=== PATIENT | male | born 1960 | race Caucasian/White ===

== ENCOUNTER 2022-08-18 07:10 | Observation (INO) ==
--- NOTE | 2022-07-16 11:01 | PAT Medication Instructions ---
Medication Instructions Date of Service July 16, 2022 Home Medications meloxicam 15 mg tablet 15 mg PO QAM metoprolol succinate 50 mg tablet,extended release 24 hr 50 mg PO QAM tamsulosin 0.4 mg capsule 0.4 mg PO QAM valsartan 80 mg tablet 80 mg PO QAM ASK your surgeon for instructions meloxicam 15 mg tablet 15 mg PO QAM DO NOT take the morning of surgery valsartan 80 mg tablet 80 mg PO QAM Take morning of surgery With a small sip of water, OTHERWISE NOTHING TO EAT OR DRINK AFTER MIDNIGHT: metoprolol succinate 50 mg tablet,extended release 24 hr 50 mg PO QAM tamsulosin 0.4 mg capsule 0.4 mg PO QAM Other Notes If you have any questions please call us at [phone] or [phone] or [phone] or [phone]
--- NOTE | 2022-07-20 08:22 | History & Physical Report ---
Date of Service July 20, 2022 date of surgery: 08/18/22 Procedure: Left Total Knee Arthroplasty Surgeon: Abel Cervantes Assessment & Plan (1) Arthritis of knee, left: Plan: Patient presents with continued pain in his left knee, he states the cortisone injection only provided about 2 weeks worth of relief. He has tried oral anti- inflammatories as well as Tylenol, cortisone injection as well as viscosupplementation. He has also had prior left knee arthroscopy in 2019. At this point time he has failed conservative measures and like to proceed with surgical intervention. Would plan for a patient-matched left total knee arthroplasty at [facility], patient does have a hip replacement on the left side which would require a patient-matched knee replacement. He also states his is currently undergoing chemotherapy for breast cancer and would like to be overnight stay at the hospital, will plan for discharge home with home health physical therapy. Will place on aspirin 81 mg twice a day for 1 month postop. He otherwise has no other questions or concerns The risks and benefits have been discussed including, but not limited to, risk of infection, nerve injury, stiffness, loss of motion, failure to improve, etc. Reasonable outcomes and options of treatment were discussed. An explanation of appropriate alternatives to the procedure that may be advantageous were discussed and their risks and benefits, as well as the risks and benefits of not proceeding with treatment. I offered to answer any additional inquiries concerning the treatment involved. All the patient's questions were answered. The patient is agreeable, understanding of the treatment plan and alternatives, and wishes to proceed with the treatment plan. History of Present Illness Chief Complaint: left knee pain Primary Care Provider: ANTONELLA PCP Santos is a pleasant 61-year-old male who presented for preop evaluation prior to his left total knee replacement. He states he been having pain in that knee for many years now which is gradually worsened and is now affecting his daily activities. He is undergone previous left knee arthroscopy as well as cortisone injections as well as viscosupplementation without any significant relief. He is tried oral anti-inflammatories and Tylenol. He has complaints of pain decreased range of motion and stiffness. At this point time is failed conservative measures and would like to proceed with a left total knee replacement Allergies Allergy/AdvReac Type Severity Reaction Status Date / Time Penicillins Allergy Rash Verified 07/15/22 12:21 Home Medications Medication Instructions Recorded Confirmed Type meloxicam 15 mg tablet 15 mg PO QAM 07/15/22 07/15/22 History metoprolol succinate 50 mg 50 mg PO QAM 07/15/22 07/15/22 History tablet,extended release 24 hr tamsulosin 0.4 mg capsule 0.4 mg PO QAM 07/15/22 07/15/22 History valsartan 80 mg tablet 80 mg PO QAM 07/15/22 07/15/22 History Past Med/Surg History Medical History Anxiety BPH (benign prostatic hyperplasia) HTN (hypertension) Osteoarthritis Surgical History History of arthroscopy of left shoulder History of arthroscopy of right shoulder History of colonoscopy History of left hip replacement History of open reduction and internal fixation (ORIF) procedure LLE, RUE History of revision of total hip arthroplasty left Family History Other No family history of adverse response to anesthesia Social History Smoking Status: Former smoker Second Hand Exposure: No; Do You Dip or Chew Tobacco: No (quit 25 years ago); Hx Alcohol Use: Yes Hx Substance Use: No Preferred Language: Croatian Communication Ability: Effective Residential Therapist Required: No Beliefs That Will Affect Care: None Current Living Situation: Spouse Feels Safe at Home: Yes Assistive Devices: Glasses Review of Systems Review of Systems: All systems reviewed & are unremarkable except as noted in HPI & below Constitutional: no fever, no chills and no sweats Respiratory: no cough and no dyspnea Cardiovascular: no chest pain, no dyspnea and no orthopnea Gastrointestinal: no abdominal pain, no nausea and no vomiting Musculoskeletal: as per Subjective / HPI Physical Exam Physical Exam: HT: 6ft 1in WT: 117.9kg Constitutional: WD/WN, vitals as above no acute distress Respiratory: normal respiratory effort, lungs clear to auscultation no respiratory distress, no labored breathing and does not use accessory muscles Cardiovascular: RRR, no murmur, no edema Gastrointestinal (Abdomen): normal bowel sounds, soft, nontender, no hepatosplenomegaly Musculoskeletal: Knee: + knee abnormal to inspection (LEFT KNEE: ), + effusion (+1 effusion), + surgical incision (well healed portals), + limited ROM of knee (ROM 0/3/110), + knee ROM with crepitation, + joint line tenderness (medial joint line) and + Jacey's sign positive; no deformity, no skin erythema, no ecchymosis, no valgus laxity, no varus laxity, anterior drawer test negative, Vernell's sign negative and pivot shift test negative Results & Data Results & Data Diagnostic Findings Left Knee X-ray: left knee series confirm advanced degenerative changes to the left knee, greatest medial compartments and patellofemoral joint, showing joint space narrowing, osteophyte formation and subchondral sclerosis. no acute bony pathology noted.
--- NOTE | 2022-07-20 10:23 | Anesthesiology Consultation ---
Date of Service July 20, 2022 Assessment & Plan (1) Encounter for pre-operative examination: - PCP pre-op evaluation scheduled 07/28/22 per pt: Charles Rubio. - anesthesia concerns: pt reports spinal block for COREY was not effective as had significant post-op pain. Denies awareness with that procedure. He does report awareness with LLE ORIF. - anesthesia reaction: (patient sometimes wakes confused, has "swung" in the past related to past experiences). - Outpatient joint assessment: Patient is currently scheduled for inpatient pathway. If re-evaluated pending system levels during current pandemic/surgeon requests outpatient pathway, patient is acceptable candidate for outpatient joint program from anesthesia standpoint pending surgeon's office assessment of pt motivation/support/completion of same day joint program preop requirements. Chart Review Chart Review: Pending: Refer to Additional Notes / Consult section and Patient seen in Pre Admission Testing Teaching & Discussion Pre-Anesthesia Teaching/Discussion Notes: Instructed NPO after midnight before surgery, except medications with 15 cc of water. Medication instructions provided according to the PAT guidelines. History Surgery Operation Date: 08/18/22 11:45 Proposed Procedures p Left Total Knee Arthroplasty - Abel Cervantes DO Height/Weight Height: 6 ft 1 in Weight: 116.1 kg Allergies Allergy/AdvReac Type Severity Reaction Status Date / Time Penicillins Allergy Rash Verified 07/15/22 12:21 Medications Home Medications Medication Instructions Recorded Confirmed Last Taken meloxicam 15 mg tablet 15 mg PO QAM 07/15/22 07/15/22 Unknown metoprolol succinate 50 mg 50 mg PO QAM 07/15/22 07/15/22 Unknown tablet,extended release 24 hr tamsulosin 0.4 mg capsule 0.4 mg PO QAM 07/15/22 07/15/22 Unknown valsartan 80 mg tablet 80 mg PO QAM 07/15/22 07/15/22 Unknown alprazolam 0.5 mg tablet 0.5 mg PO HS PRN Insomnia 07/20/22 07/20/22 Unknown Additional Notes: Pt denies additional medications other than alprazolam 0.5 mg HS PRN. This was added to EMR and written on provided medication instructions that it can be taken the evening prior to surgery if needed. He verbalized full understanding and denied additional questions or concerns. Past Medical History Medical History (Updated 07/20/22 @ 10:24 by Brionna Flores PA-C) Anxiety BPH (benign prostatic hyperplasia) HTN (hypertension) controlled, stable per pt Patient denies h/o stroke, seizures, heart attack, heart failure, DM, blood clots or blood transfusions. Exercise / Class Metabolic Activity II 4-5 Yardwork/Stairs/Walk up hill (denies chest discomfort or shortness of breath with 1 FOS) Past Family History Family History Other No family history of adverse response to anesthesia Past Surgical History Surgical History History of arthroscopy of left shoulder History of arthroscopy of right shoulder History of colonoscopy History of left hip replacement History of open reduction and internal fixation (ORIF) procedure LLE, RUE History of revision of total hip arthroplasty left Past Anesthesia History No Family Hx of Anesthesia Complications and Other (patient sometimes wakes confused, has "swung" in the past related to past experiences) History of PONV No Hx of PONV and No Hx of Motion Sickness Social History Smoking Status: Former smoker Do You Dip or Chew Tobacco: No (quit 25 years ago) Smoking End Date: 25 years ago Hx Alcohol Use: Yes alcohol intake frequency: a few times a month Hx Substance Use: No substance use type: does not use Review of Systems Patient denies chest pain, shortness of breath, dyspnea on exertion, snoring, witnessed apneas, reflux, fever, chills, cough, wheezing, or palpitations. Physical Exam Vital Signs Vitals BP 153/91 P 55 TEMP 98.5 SP02 95% on RA RESP 18 Physical Full cervical extension range of motion without pain TMD 3.5 finger breadths Mallampati Score 2 Dentition: several missing and chipped teeth, denies loose teeth, caps/crowns, implants or bridges Lungs: normal respiratory effort. Good air movement, clear throughout to auscultation, no adventitious breath sounds Cardiac: regular rate and rhythm, no murmurs noted Carotid arteries: negative bruit bilat Lab Results Anesthesia Preop Results Results Anesthesia Widget: WBC 5.29 K/ul (4.8-10.8) 07/20/22 Hgb 16.5 g/dl (14.0-18.0) 07/20/22 Hct 49.2 % (42.0-52.0) 07/20/22 Plt 240 K/uL (130-400) 07/20/22 Na 141 mmol/L (136-145) 07/20/22 K 4.6 mmol/L (3.5-5.1) 07/20/22 Cl 108 mmol/L (98-107) H 07/20/22 CO2 27 mmol/L (21-32) 07/20/22 BUN 18 mg/dl (6-23) 07/20/22 Creat 0.97 mg/dl (0.6-1.4) 07/20/22 Glucose Level 101 mg/dl (70-99(Fasting)) H 07/20/22 PT 11.0 Seconds (9.0-12.0) 07/20/22 PTT 27.1 Seconds (21.0-31.0) 07/20/22 INR 1.0 (0.9-1.1) 07/20/22 HA1c 5.6 % (4.5-5.6) 07/20/22 Urine Color Yellow 07/20/22 Urine Appearance Clear (Clear) 07/20/22 Urine pH 6.0 (4.5-7.5) 07/20/22 Urine Specific Bimble 1.022 (1.000-1.030) 07/20/22 Urine Protein Negative (Negative) 07/20/22 Urine Glucose (UA) Negative (Negative) 07/20/22 Urine Ketones Negative (Negative) 07/20/22 Urine Blood Negative (Negative) 07/20/22 Urine Nitrite Negative (Negative) 07/20/22 Urine Bilirubin Negative (Negative) 07/20/22 Urine Urobilinogen Negative (Negative) 07/20/22 Urine Leukocyte Esterase Negative (Negative) 07/20/22 Blood Type A Positive 07/20/22 Antibody Screen NEGATIVE 07/20/22 Testing Electrocardiogram Date: 07/20/22 Sinus bradycardia, rate 50 bpm Chest X-Ray Date: 07/20/22 No acute cardiopulmonary findings COVID-19 Risk Screen Screening Information COVID-19 Screen Date: 07/20/22 Exposure 21 Days Family/Household +COVID Last 21 Days: No Exposure 10 Days Any COVID Exposure Last 10 Days: No Symptoms Last 10 Days Experienced COVID Sx Last 10 Days: No + COVID 0-90 Days COVID + in Last 0-90 Days: No
[~2022-08-18 07:10] MED LIST: ACETAMINOPHEN 500 MG TAB PO SCH; CeleBREX 200 MG CAP PO SCH; FAMOTIDINE 20 MG TAB PO SCH; GABAPENTIN 600 MG DOSE PO SCH; LR 500ML BOLUS, THEN 15ML/HR IV SCH; METOCLOPRAMIDE HCL 10 MG TABLET PO SCH; ROPIVACAINE 0.5% HCL/PF 150 MG, BUPIVACAINE 0.75% MPF 20 ML, EPINEPHrine 30MG/30ML (OR ... INSTIL SCH; SODIUM CHLORIDE 0.9% IV SCH; TRANEXAMIC ACID 1,000 MG **IV Intra-op IV SCH; TRANEXAMIC ACID 1,000 MG **IV Pre-op IV SCH; VANCOMYCIN HCL IV SCH; dexAMETHasone 4 MG TAB PO SCH
[2022-08-18] MEDS ORDERED: BUPIVACAINE 0.25% PF 30 ML VIAL ONE (07:22)
[2022-08-18] MEDS ORDERED: DEXAMETHASONE SOD INJ 4 MG/ML VIAL ONE (07:23)
[2022-08-18] MEDS ORDERED: EPINEPHrine INJ 1 MG/ML AMP ONE (07:23)
[2022-08-18] MEDS ORDERED: BUPIVACAINE 0.5 % 5 MG/1 ML PF 10ML VIAL ONE (07:23)
[2022-08-18] MEDS ORDERED: LIDOCAINE 2% 2 ML VIAL/AMP(20MG/ML) INFIL ONE (07:46)
[2022-08-18] MEDS ORDERED: fentaNYL citrate PF 100 MCG/2 ML VIAL ONE (07:46)
[2022-08-18] MEDS ORDERED: MIDAZOLAM HCL 1 MG/ML 2ML VIAL ONE ×2 (07:46→10:51)
[2022-08-18] MEDS ORDERED: PROPOFOL IV EMULSION 10 MG/ML 20 ML VIAL IV ONE ×3 (07:46→11:58)
--- NOTE | 2022-08-18 08:40 | History & Physical Bridge Note ---
Date of Service August 18, 2022 History & Physical Bridge Note I have examined the patient, reviewed the History & Physical and in the interval since the performance of the History & Physical I have noted the following changes of clinical significance: no changes noted
[2022-08-18] MEDS ORDERED: ORTHO JOINT ANESTHETIC ONE (09:08)
[2022-08-18] MEDS ORDERED: ONDANSETRON INJ 2 MG/ML 2 ML VIAL ONE (10:57)
[2022-08-18] MEDS ORDERED: ePHEDrine sulfate 50 MG/ML AMP IV PRN (11:19)
[2022-08-18] MEDS ORDERED: fentaNYL citrate PF 100 MCG/2 ML VIAL IV PRN (11:19)
[2022-08-18] MEDS ORDERED: ATROPINE SULFATE 0.1 MG/ML 10ML SYR IV PRN (11:19)
[2022-08-18] MEDS ORDERED: ONDANSETRON INJ 2 MG/ML 2 ML VIAL IV PRN (11:19)
--- NOTE | 2022-08-18 12:01 | Operative Report ---
Post Operative Report Pre & Post Diagnosis Operation Date: 08/18/22 09:50 Pre-Op Diagnosis: Arthritis of knee, left Post-Op Diagnosis: Arthritis of knee, left I identified the patient and participated in the time-out.: Yes Procedure Operation Date: 08/18/22 09:50 Actual Procedures p Left Total Knee Arthroplasty, Cemented(Left) utilizing [employer] persona femur 12 tibia H poly 11 medial constrained patella 34 oval with block- Abel Cervantes DO Surgeon Abel Cervantes DO Press Tender Incendiary Grenade MARY ANNE Lujan Estimated Blood Loss 5 Findings Consistent with Post-Op Diagnosis Patient presents with severe end-stage tricompartmental degenerative joint disease left knee nonresponsive to conservative management patient presents for total knee arthroplasty at the time surgery did not be evidence of marginal ost eophytes eburnated [id number] varus alignment subchondral cystic changes and a moderate to large effusion Specimens Bone and cartilage Drains Medium bore Hemovac Anesthesia Type MAC Spinal Regional Complications none Disposition Accompanied Patient To Recovery: No Disposition: Recovery Room Indications Patient presents with severe end-stage DJD left knee for left total knee arthroplasty patient has failed attempted corticosteroid injection viscosupplementation relative rest activity modification relative rest the above intraoperative findings were noted Description of Procedure After proper prepping and draping of the left lower extremity anterior midline incision was made over the region of the extensor extensor mechanism after meticulous hemostasis was obtained and maintained in subcutaneous tissues a medial parapatellar incision was made The patella was subluxed lateralward the medial lateral gutter were cleaned from any hypertrophic synovitis and scar tissue of the distal femoral block was placed and the distal femoral osteotomy cut was made subsequently the chamfers anterior and posterior osteotomy cuts were made utilizing the 4-in-1 block the tibia was subsequently subluxed anteriorward medial and ateral meniscal remnants were excised in their entirety remnants of the anterior and posterior cruciate ligaments were excised in their entirety excellent exposure of the proximal tibia was obtained the tibial osteotomy guide was placed on the proximal tibial osteotomy cut was made once again the knee was irrigated with copious amounts of sterile saline solution the patella was subsequently everted lateralward thickened scar tissue around the patella was removed the patella was subsequently cut utilizing a freehand technique and was drilled prepared for final preparation and placement of patella socially flexion-extension gaps were checked and the equal and symmetric trials were placed to the appropriate femoral and tibial trials with poly-spacer being placed for equal flexion and extension gaps and full range of motion including extension to 0 and flexion to 140 the trial components after having been taken to recovery range of motion was subsequently removed meticulous hemostasis was obtained and maintained subsequently a knee block injection of joint cocktail including ropivacaine 0.5% 150 mg. Bupivacaine 0.5% epinephrine 1-200,030 mL's toradol 30 mg dexamethasone 4 mg ketamine 10 mg clonidine 100 micrograms normal saline solution 30 mg was infiltrated into the soft tissues of the posterior knee medial lateral gutters and periosteal synovium special attention was paid to protect neurovascular structures at all times subsequently trial components having been removed the knee was irrigated with sterile saline solution. debris was removed the proximal tibia was subsequently prepared and was made ready for the placement of the tibial component tibial component was also cemented and tamped into position the femoral component was subsequently placed and cemented in the position the patellar component was subsequently cemented in position because hemostasis once again obtained and maintained wound having been thoroughly irrigated with debridement and debridement lavage was performed as well as a medial parapatellar incision closed with #1 Vicryl in interrupted fashion subcutaneous was closed with #2 Vicryl skin was closed with skin clips. PA-C was necessary for prepping and drapping as well as wound closure of deep fascia Sub cutaneous tissue and skin and was necessary for the case. A sterile compressive dressing was placed patient was taken to recovery in stable condition of report dictated by Billy I attest to the content of the Intraoperative Record and any orders documented therein. Any exceptions are noted below.Due to the complex nature of the procedure, the entire surgery was performed with the operational assistance of MARY ANNE Lujan. The help desk assistant, under direct supervision, was involved in the actual performance of all aspects of the surgical procedure including hemostasis, tissue retraction and incision, instrument management, patient positioning, and wound closure. I attest to the content of the Intraoperative Record and any orders documented therein. Any exceptions are noted below.
[2022-08-18] MEDS ORDERED: ePHEDrine sulfate 50 MG/ML SYR ONE (12:29)
[2022-08-18] MEDS ORDERED: PHENYLEPHRINE 100MCG/ML 5ML SYR ONE (12:29)
--- NOTE | 2022-08-18 13:08 | XRay Report ---
TWO VIEWS LEFT KNEE CLINICAL HISTORY: Postoperative examination. FINDINGS: AP and crosstable lateral portable views of the left knee are obtained. A left knee arthrop lasty is in near anatomic alignment. There has been undersurface remodeling of the patella. No acute fracture is seen. There are expected postoperative changes around the knee including a surgical drain , soft tissue edema, and subcutaneous gas. IMPRESSION: Expected postoperative changes status post left knee arthroplasty. No acute fracture is s een. ACT 112: Negative or not required by law. Electronically signed by: Joni Rojo M.D. 08/18/2022 1:07 PM
--- NOTE | 2022-08-18 13:44 | Anesthesiology Progress Note ---
Date of Service August 18, 2022 Anesthesia Post Procedure Vital Signs Vital Signs: Temp Pulse Pulse Resp BP Pulse Ox O2 Del Method 08/18/22 13:35 62 12 123/79 93 Room Air 08/18/22 13:25 36.4 C L 62 19 125/76 94 Room Air 08/18/22 13:15 64 15 121/74 94 Room Air 08/18/22 13:05 61 15 105/70 96 Oxymask 08/18/22 12:55 64 16 107/56 L 97 Oxymask 08/18/22 12:45 67 16 101/64 97 Oxymask 08/18/22 12:37 36.2 C L 75 16 101/61 96 Oxymask 08/18/22 07:54 37.2 C 60 20 150/100 H 97 Room Air O2 Flow Rate 08/18/22 13:35 08/18/22 13:25 08/18/22 13:15 08/18/22 13:05 2 08/18/22 12:55 2 08/18/22 12:45 4 08/18/22 12:37 6 08/18/22 07:54 Pain Intensity Left Knee: Pain Intensity: 7 Transfer of Care Handoff Completed per policy Notes Mental Status: alert / awake / arousable Patient Amnestic to Procedure: Yes Nausea / Vomiting: adequately controlled Pain: adequately controlled Airway Patency, RR, SpO2: stable & adequate BP & HR: stable & adequate Hydration State: stable & adequate Neuraxial Anesthesia: was administered and sensory block is resolving Anesthetic Complications: no major complications apparent
[2022-08-18] MEDS ORDERED: METOCLOPRAMIDE HCL INJ 5 MG/ML 2 ML VIAL IV PRN (14:16)
[2022-08-18] MEDS ORDERED: ALPRAZolam 0.5 MG TABLET PO PRN (14:16)
[2022-08-18] MEDS ORDERED: bisacodyL 10 MG SUPP PR PRN (14:16)
[2022-08-18] MEDS ORDERED: diphenhydrAMINE Capsule 25 MG CAP PO PRN (14:16)
[2022-08-18] MEDS ORDERED: HYDROmorphone INJ 1 MG/ML SYRINGE IV PRN (14:16)
[2022-08-18] MEDS ORDERED: NALOXONE HCL 0.4 MG/1 ML VIAL/CARP IV PRN (14:16)
[2022-08-18] MEDS ORDERED: MAGNESIUM HYDROXIDE SUSP 30 ML UDC PO PRN (14:16)
[2022-08-18] MEDS: ACETAMINOPHEN 500 MG TAB PO SCH ×2 (14:36→21:56)
[2022-08-18] MEDS: SODIUM CHLORIDE 0.9% 1000ML 1,000 ML IV SCH (14:36)
[2022-08-18] MEDS: KETOROLAC 30 MG/ML VIAL IV SCH ×2 (14:37→20:28)
[2022-08-18] MEDS: ONDANSETRON INJ 2 MG/ML 2 ML VIAL IV PRN (18:48)
[2022-08-18] MEDS: oxyCODONE HCL IR 5 MG TAB (IMMEDIATE RELEASE) PO PRN ×2 (18:48→22:46)
[2022-08-18] MEDS: CLINDAMYCIN/D5W 600 MG/50 ML BAG IV SCH (18:49)
[2022-08-18] MEDS: DOCUSATE SODIUM 100 MG CAP PO SCH (20:30)
[2022-08-18] MEDS: ASPIRIN 81 MG ECTAB PO SCH (20:30)
[2022-08-18] MEDS ORDERED: SENNA 8.6 MG TAB PO SCH (21:00)
[2022-08-19] MEDS: SODIUM CHLORIDE 0.9% 1000ML 1,000 ML IV SCH (01:06)
[2022-08-19] MEDS: KETOROLAC 30 MG/ML VIAL IV SCH ×2 (02:22→07:42)
[2022-08-19] MEDS: CLINDAMYCIN/D5W 600 MG/50 ML BAG IV SCH (02:26)
[2022-08-19] MEDS: ACETAMINOPHEN 500 MG TAB PO SCH (05:46)
[2022-08-19 06:11] LABS: Hematocrit (blood only) 39.9 % (42.0-52.0); Hemoglobin 13.7 g/dl (14.0-18.0); Mean Corpuscular Hemoglobin 31.1 pg (25.0-34.0); Mean Corpuscular Hgb Conc 34.3 g/dL (32.0-36.0); Mean Corpuscular Volume 90.5 fL (80.0-100.0); Mean Platelet Volume 10.7 fL (9.4-12.4); Platelet Count 199 K/uL (130-400); RDW Coefficient of Variation 12.2 % (11.5-14.5); RDW Standard Deviation 40.2 fL (36.4-46.3); Red Blood Count 4.41 M/uL (4.70-6.10); White Blood Count 12.31 K/ul (4.8-10.8)
[2022-08-19 06:28] LABS: BUN Creatinine Ratio 21.5 (10-20); Calcium 7.9 mg/dl (8.6-10.3); Creatinine Clr Calc Pharmacy 112.1 ml/min; Est GFR (African American) 102.3 ml/min; Est GFR (Non-African American) 88.3 ml/min; Potassium 4.4 mmol/L (3.5-5.1)
[2022-08-19] MEDS: DOCUSATE SODIUM 100 MG CAP PO SCH (07:42)
[2022-08-19] MEDS: ASPIRIN 81 MG ECTAB PO SCH (07:42)
[2022-08-19] MEDS: oxyCODONE HCL IR 5 MG TAB (IMMEDIATE RELEASE) PO PRN (07:56)
--- NOTE | 2022-08-19 08:09 | Orthopedic Progress Note ---
Date of Service August 19, 2022 Assessment & Plan (1) Arthritis of knee, left: Plan: Postop day 1 status post left total knee arthroplasty PT/OT protocols. Weightbearing as tolerated. DVT prophylaxis-aspirin p.o. twice daily, SCDs, ALCIRA hinojosa. Pain management as written. DC planning-patient is planning for outpatient PT upon discharge Admission and Anticipated Discharge Date Admission Date: August 18, 2022 Subjective Postop day 1 Patient sitting in his chair at the bedside. States he was having some discomfort off and on but is tolerating well. No other complaints at this time. Physical Exam Physical Exam: Dressings are clean, dry, and intact. Calves are soft nontender. Neurovascular intact. Toes are mobile. He has good dorsiflexion and plantarflexion of the left knee. Hemovac drainage was 250 cc from the previous shift. Results & Data Vital Signs (Past 12 Hours) Vital Signs Temp Pulse Resp BP Pulse Ox O2 Del Method 08/19/22 06:00 36.3 C L 60 16 128/78 98 Room Air 08/19/22 02:28 36.4 C L 50 L 18 122/66 95 Room Air 08/18/22 23:15 36.4 C L 58 L 16 118/70 95 Room Air Laboratory Results Laboratory Results WBC 12.31 K/ul (4.8-10.8) H 08/19/22 05:48 RBC 4.41 M/uL (4.70-6.10) L 08/19/22 05:48 Hgb 13.7 g/dl (14.0-18.0) L 08/19/22 05:48 Hct 39.9 % (42.0-52.0) L 08/19/22 05:48 MCV 90.5 fL (80.0-100.0) 08/19/22 05:48 MCH 31.1 pg (25.0-34.0) 08/19/22 05:48 MCHC 34.3 g/dL (32.0-36.0) 08/19/22 05:48 RDW Std Deviation 40.2 fL (36.4-46.3) 08/19/22 05:48 RDW Coeff of Dmitriy 12.2 % (11.5-14.5) 08/19/22 05:48 Plt Count 199 K/uL (130-400) 08/19/22 05:48 MPV 10.7 fL (9.4-12.4) 08/19/22 05:48 Sodium 138 mmol/L (136-145) 08/19/22 05:48 Potassium 4.4 mmol/L (3.5-5.1) 08/19/22 05:48 Chloride 110 mmol/L (98-107) H 08/19/22 05:48 Carbon Dioxide 22 mmol/L (21-32) 08/19/22 05:48 Anion Gap 6 (3-11) 08/19/22 05:48 BUN 20 mg/dl (6-23) 08/19/22 05:48 Creatinine 0.93 mg/dl (0.6-1.4) 08/19/22 05:48 Est Cr Clr Drug Dosing 112.1 ml/min 08/19/22 05:48 Est GFR ( Amer) 102.3 ml/min 08/19/22 05:48 Est GFR (Non-Af Amer) 88.3 ml/min 08/19/22 05:48 BUN/Creatinine Ratio 21.5 (10-20) H 08/19/22 05:48 Glucose 147 mg/dl (70-99(Fasting)) H 08/19/22 05:48 Calcium 7.9 mg/dl (8.6-10.3) L 08/19/22 05:48 SARS-CoV-2, RNA, NAAT NEGATIVE (NEGATIVE) 08/18/22 07:35 Impressions Knee X-Ray 08/18/22 12:39 TWO VIEWS LEFT KNEE CLINICAL HISTORY: Postoperative examination. FINDINGS: AP and crosstable lateral portable views of the left knee are obtained. A left knee arthroplasty is in near anatomic alignment. There has been undersurface remodeling of the patella. No acute fracture is seen. There are expected postoperative changes around the knee including a surgical drain, soft tissue edema, and subcutaneous gas. IMPRESSION: Expected postoperative changes status post left knee arthroplasty. No acute fracture is seen. ACT 112: Negative or not required by law. Electronically signed by: Joni Rojo M.D. 08/18/2022 1:07 PM
[2022-08-19] MEDS ORDERED: METOPROLOL SUCC 50MG EXT REL TAB PO SCH (09:00)
[2022-08-19] MEDS ORDERED: CeleBREX 200 MG CAP PO SCH (09:00)
[2022-08-19] MEDS ORDERED: TAMSULOSIN HCL 0.4 MG CAP PO SCH (09:00)
[2022-08-19] MEDS ORDERED: MULTIVITAMIN TAB PO SCH (09:00)
[2022-08-19] MEDS ORDERED: VALSARTAN 80 MG TAB PO SCH (09:00)
[2022-08-19] MEDS: ONDANSETRON INJ 2 MG/ML 2 ML VIAL IV PRN (09:01)
[2022-08-19] MEDS ORDERED: LORazepam 0.5 MG TAB PO STA (10:51)
--- NOTE | 2022-08-19 15:39 | Discharge Summary ---
Date of Service date of discharge: August 19, 2022 date of admission: 08/18/22 Admission HPI Per Admitting Provider Santos is a pleasant 61-year-old male who presented for preop evaluation prior to his left total knee replacement. He states he been having pain in that knee for many years now which is gradually worsened and is now affecting his daily activities. He is undergone previous left knee arthroscopy as well as cortisone injections as well as viscosupplementation without any significant relief. He is tried oral anti-inflammatories and Tylenol. He has complaints of pain decreased range of motion and stiffness. At this point time is failed conservative measures and would like to proceed with a left total knee replacement Principal Diagnosis left knee arthritis Discharge Exam Musculoskeletal left knee: NVDI, calf SNT, negative justin sign. DP palpable, able to wiggle toes/ankle movement without difficulty. dressing clean dry and intact. Discharge Data Allergies Allergy/AdvReac Type Severity Reaction Status Date / Time Penicillins Allergy Rash Verified 08/18/22 07:50 Procedures Performed Operation Date: 08/18/22 09:50 Actual Procedures p Left Total Knee Arthroplasty, Cemented(Left) - Abel Post DO Ordered Studies 08/18/22 05:00 US - OR guided needle placemen Routine Hospital Course (1) Arthritis of knee, left: Postop day 1 status post left total knee arthroplasty PT/OT protocols. Weightbearing as tolerated. DVT prophylaxis-aspirin p.o. twice daily, SCDs, ALCIRA hinojosa. Pain management as written. DC planning-patient is planning for outpatient PT upon discharge Total Time Total Time Spent Total Time Spent (In Minutes): 20 Discharge Plan Discharge Items Patient Disposition: Home - Self-Care Reason For Visit: Left Knee Osteoarthritis Discharge Diagnosis: LEFT TOTAL KNEE REPLACEMENT Activity: Per Instructions section Weightbearing Comment: WBAT WITH WALKER Non-emergency contact: Surgeon Call non-emergency contact if: you have any medication questions, your temperature is above 101, your wound has increased redness, your wound has increased drainage and your wound pain has increased Follow-up/Referrals: Abel Post DO [Surgeon] - (Follow-up with Dr. Post or his PA in 2 weeks from the day of your surgery for your first postoperative visit.) Joni Mojica, [place] [Primary Care Provider] - Diet: Regular Addtl Attending Provider Instructions: ACTIVITY RECOMMENDATIONS: SELF CARE INSTRUCTIONS AFTER TOTAL KNEE REPLACEMENT A. You may need to continue a physical therapy program after discharge from the hospital. There are several options available to you. Your doctor will assist you in selecting the best one for you. 1. An out-patient facility 2 to 3 times a week for therapy or home therapy. 2. Continue working on all exercises taught to you in the hospital. Your goals should be to increase bending of your knee to 90 degrees and beyond and to fully straighten your knee. B. You may progress at your own pace from walking with a walker or crutches to a cane; then to no assistive devices. C. Make walking a part of your daily routine. Be up as much as comfortable wi th rest periods throughout the day. Rest with leg elevation is very important. Use the ice wrap frequently for the first 3-4 weeks. D. There are no restrictions on activities. You may ride in a car, shop, participate in tobacco dipper and all social activities. E. Wear the long elastic stockings (ALCIRA hose) 20 hours a day for 2 weeks after surgery. They can be removed several times a day for laundering and for a bath. F. You may shower, no tub baths until cleared by your doctor. SPECIAL CARE INSTRUCTIONS: VERY IMPORTANT TO READ AND REVIEW A. There are a few signs you need to watch for after you are home. Call [facility] if you notice any of the followin. Increased severe knee pain. Some pain is expected especially when you exercise. 2. Increased swelling in your leg or knee; pain or swelling of the calf muscle in either lower leg. 3. Any fluid drainage from the incision. 4. Shortness of breath or chest pain. B. Please call [facility] at if you have any concerns or questions about your operation or recovery. The doctor or his nurse will return your call promptly. C. You must take antibiotics before dental work, bladder, bowel or other surgery. Your doctor will provide you with a permanent care to carry describing this precaution. IMPORTANT: * REMEMBER TO TAKE ASPIRIN, 81 MG, TWICE DAILY FOR 4 WEEKS UNLESS OTHERWISE DIRECTED. THIS IS YOUR BLOOD THINNER. * HIGH RISK PATIENTS MAY BE PRESCRIBED A STRONGER BLOOD THINNER. THIS WILL BE PROVIDED AT DISCHARGE. * CALL IF INCREASED PAIN, REDNESS, DRAINAGE OR FEVER GREATER THAT 101. * WEAR ALCIRA HOSE 20 HOURS PER DAY FOR 2 WEEKS. DRESSING INSTRUCTIONS * CRISTIAN Dressing- This is a large suction dressing covering your incision. This will help pull any excess drainage from the wound and allow your incision to heal properly. You may shower with this if you can keep the unit outside of the shower. If any bleeding or leakage is noted please call your doctor's office. This will remain on your incision for 7 days and then should be removed. This can be done yourself or by the home nursing staff if applicable. The entire unit is disposable once removed. Once removed, keep incision clean and dry. If redness or drainage is noted, please call your surgeon. ONCE CRISTIAN IS REMOVED, FOLLOW THESE INSTRUCTIONS: DERMABOND Prineo- This is a mesh tape dressing that is covered with glue. It should remain in place until the incision is properly healed, usually 10-14 days. This dressing is designed to naturally slough off. You may trim the excess mesh tape as it peels off. Incision may be briefly wet in a shower. Dry immediately by blotting with a clean, dry towel. Do not bath or swim until instructed by your doctor. Do not scratch, rub, or pick at the dressing. Do not apply any topical ointments or lotions until dressing is completely removed and/or instructed by your doctor. There may be a small piece of suture material at one end of your incision. Do not pull or trim this. If it is bothersome or catching on clothing, you may cover it with a band-aid. IF INCISION IS LEAKING THROUGH DRESSING, CALL THE OFFICE . FOLLOW UP VISIT: If appointment is not already scheduled: Please call [facility] to make a follow-up appointment for 2 weeks after your surgery at . Stand-Alone Forms: My [employer], Pain - Opioid Pain Management, Smoking Cessation Medications and DC Order Prescriptions: New celecoxib [Celebrex] 200 mg capsule 200 mg PO BID 30 Days Qty: 60 0RF clindamycin HCl 300 mg capsule 300 mg PO TID 7 Days Qty: 21 0RF aspirin 81 mg tablet,delayed release (DR/EC) 81 mg PO BID 30 Days Qty: 60 0RF acetaminophen 500 mg tablet 1,000 mg PO Q8 21 Days Qty: 126 0RF docusate sodium 100 mg Capsule 100 mg PO BID Qty: 20 0RF oxycodone 5 mg tablet 5 - 10 mg PO Q6H PRN (Reason: pain) Qty: 30 0RF Rx Instructions: ongoing therapy, supervising dr yvon post. max 6 tabs in 24 hours Continued metoprolol succinate 50 mg Tablet Extended Release 24 Hr 50 mg PO QAM valsartan 80 mg Tablet 80 mg PO QAM tamsulosin 0.4 mg Capsule 0.4 mg PO QAM alprazolam 0.5 mg Tablet 0.5 mg PO HS PRN (Reason: Insomnia) Discontinued meloxicam 15 mg Tablet 15 mg PO QAM Discharge Orders: Discharge Order (Routine); Ordered 08/19/22 Ordered By: Jake Mccoy/Other Patient Handouts: Total Knee Replacement, Knee Replace Home Recovery Admission Data Admit Date/Time: 08/18/22 12:39 Attending Provider: Abel Post Admit Provider: Abel Post Primary Care Provider: Joni Mojica Other Interventions: Discharge Summary Assessment (RN) Last Done: 08/19/22 12:27
== END 2022-08-19 13:15 | disposition home or self-care (01) ==
LOC: ASU 07:10 → 3E 07:10